=== PATIENT | female | born 1975 | race Caucasian/White ===

== ENCOUNTER 2023-12-28 22:04 | Emergency (ER) | payer MEDICAID, SELFPAY ==
--- NOTE | ~2023-12-28 | CT_ITS ---
EXAMINATION: CT HEAD WITHOUT CONTRAST CLINICAL INFORMATION: Fall. Altered mental status. COMPARISON: None available. TECHNIQUE: Contiguous axial imaging was performed from the skull base to vertex without intravenous administration of contrast. This CT examination was performed using dose optimization techniques as appropriate, variously including the following: *Automated exposure control *Adjustment of mA and/or kV according to patient size (this includes techniques or standardized protocols for targeted exams where dose is matched to indication/reason for exam; i.e. extremities or head) *Use of iterative reconstruction technique DLP: 650 mGy-cm FINDINGS: The lateral, third and fourth ventricles are normally outlined. The cortical sulci and basal cisterns are normally outlined as well. There is no acute territorial defect, hemorrhage or midline shift. The extra-axial spaces are unremarkable. Calvarium/scalp: Intact. Maxillofacial sinuses and mastoids: Clear as visualized. CT/CT head/brain wo IV con IMPRESSION: No acute intracranial pathology.
[2023-12-28 22:28] VITALS: BP 100/58; PULSE 89; PULSE 94; RESP 14; TEMP 37.1; O2SAT 95; O2SAT 96; BMI 31.8
[2023-12-28 23:15] LABS: MANUAL DIFF FLAG NO
[2023-12-28 23:16] LABS: Basophils Absolute Auto 0.1 X10*3/uL (0.0-0.2); Basophils Percent Auto 0.8 % (0-2); Eosinophils Absolute Auto 0.2 X10*3/uL (0.0-0.4); Eosinophils Percent Auto 3.6 % (0-4); Hemoglobin 12.4 g/dl (12.0-16.0); Imm Gran Abs Auto 0.01 X10*3/uL (0.00-0.03); Imm Gran Pct Auto 0.2 % (0.0-0.4); Lymphocytes Absolute Auto 2.3 X10*3/uL (1.2-4.9); Lymphocytes Percent Auto 35.4 % (20-40); Mean Corpuscular HGB Conc 34.4 g/dl (31.0-35.0); Mean Corpuscular Hemoglobin 30.5 pg (27.0-33.0); Mean Corpuscular Volume 88.5 fL (80.0-98.0); Mean Platelet Volume 9.4 fL (9.4-12.3); Monocytes Absolute Auto 0.5 X10*3/uL (0.1-1.2); Neutrophils Absolute Auto 3.4 x10*3/uL (2.0-8.3); Platelet Count 193 X10*3/uL (160-400); Red Blood Count 4.07 X10*6/uL (4.20-5.50); Red Cell Distribution Width 12.9 % (11.0-16.0); White Blood Count 6.6 X10*3/uL (4.8-10.8)
--- NOTE | 2023-12-28 23:25 | PC.NURSE ---
Rcvd call from [facility] for update. Notified that we are pending MD evaluation.
[2023-12-28 23:31] LABS: Alanine Aminotransferase 13 U/L (0-31); Albumin Level 3.6 g/dL (3.5-5.0); Alkaline Phosphatase 122 U/L (39-117); Anion Gap 16 (12-20); Aspartate Amino Transferase 16 U/L (5-31); Bilirubin Total 0.2 mg/dL (0.0-1.0); Blood Urea Nitrogen 18 mg/dL (9-16); Carbon Dioxide 24 mmol/L (22-29); Chloride 106 mmol/L (96-108); Estimated Glomerular Filt Rate > 60; Ethanol < 10 mg/dL; Glucose Random 110 mg/dL (60-115); Potassium 3.7 mmol/L (3.3-5.1); Sodium 142 mmol/L (135-145); Total Protein 6.8 g/dL (6.5-8.0)
[2023-12-29] VITALS: BP 105/60; PULSE 78; RESP 14; TEMP 36.8; O2SAT 92
--- NOTE | 2023-12-29 00:16 | ED_ITS ---
HPI - Altered Mental Status General Chief Complaint: Altered Mental Status Stated Complaint: from sober house, altered, denies drug use Time Seen by Provider: 12/28/23 23:35 Source: EMS Mode of arrival: EMS Limitations: altered mental status History of Present Illness ED Provider: Dr. Emilia Odom HPI narrative: Patient comes to the emergency room via ambulance from sober house. Seems that today was the 1st day that patient was allowed to leave the sober house. When patient returned to the residents, patient was not in, falling asleep, it is likely that patient used drugs. Patient has history of polysubstance abuse. On arrival to the emergency room, patient falling asleep, wakes up to name a falls back asleep, nodding off. Patient has no signs of trauma. Related Data Allergies Allergy/AdvReac Type Severity Reaction Status Date / Time amoxicillin [From Augmentin] Allergy Unknown Verified 12/28/23 22:32 clavulanic acid Allergy Unknown Verified 12/28/23 22:32 [From Augmentin] Review of Systems 2 Review of Systems: Yes Unobtainable due to mental status [facility] Past Medical History Medical History (Updated 12/29/23 @ 00:19 by Emilia Odom MD) Polysubstance abuse Social History Social History Smoked in Last 30 Days: Yes Use of substances other than those prescribed or required for medical reasons: Yes Substance Use Type: Marijuana Do you have a plan to hurt others: No Plan Patient : No Physical Exam ED Vital Signs: Vital Signs - 24 hr 12/28/23 22:28 12/29/23 00:00 Temperature 98.7 F 98.2 F Pulse Rate 89 78 Respiratory Rate 14 14 Blood Pressure 100/58 L 105/60 Pulse Oximetry 96 92 Oxygen Delivery Method Nasal Cannula Room Air BMI result Body Mass Index 31.8 Const Other: Appearance: Somnolent, wakes up to name falls back asleep Eyes: Pinpoint pupils, Pupils equal, round and reactive to light. ENT: Pharynx normal. Neck: Normal inspection. Neck supple. No lymph nodes noted. No crepitus CVS: Normal heart rate and rhythm. Pulses normal. Normal S1 and S2 Respiratory: No respiratory distress. Breath sounds normal. No Wheezing. No rales Abdomen: Soft and nontender. No rigidity. No distention. Skin: Skin warm and dry. Normal skin color. Normal skin turgor. Extremities: No lower extremity edema. No Lacerations. No Rash Neuro: Somnolent, unable to participating cranial nerve assessment Psych: To somnolent Course Course Course Narrative: -labs and CT scan pending -patient too somnolent to give any significant information -patient's vitals stable, no need for Narcan at this time Medical Decision Making Medical Decision Making [facility] Narrative: -my interpretation of labs: Normal hematology and chemistry, negative ETOH levels -CT scan my interpretation: No intracranial bleed -urine toxicology pending -plan: Metabolize to freedom, wait for patient to be awake, assess for SI -sign out given to Dr. Arroyo Differential Diagnosis Differential Diagnoses: The differential diagnosis associated with the presentation includes (Polysubstance abuse) Admission/Observation Consideration of admission/observation: Escalation of care including admission/observation considered (Patient too somnolent to answer any questions, patient is under physician observation) Lab Data [facility] Lab Attestation statement: I reviewed the patient's lab results. 12/28/23 23:10 12/28/23 23:10 Labs: Lab Results 12/28/23 Range/Units 23:10 WBC 6.6 (4.8-10.8) X10*3/uL RBC 4.07 L (4.20-5.50) X10*6/uL Hgb 12.4 (12.0-16.0) g/dl Hct 36.0 L (37.0-47.0) % MCV 88.5 (80.0-98.0) fL MCH 30.5 (27.0-33.0) pg MCHC 34.4 (31.0-35.0) g/dl RDW 12.9 (11.0-16.0) % Plt Count 193 (160-400) X10*3/uL MPV 9.4 (9.4-12.3) fL Immature Gran % (Auto) 0.2 (0.0-0.4) % Neut % (Auto) 52.0 (45-73) % Lymph % (Auto) 35.4 (20-40) % Glynn % (Auto) 8.0 (2-11) % Eos % (Auto) 3.6 (0-4) % Baso % (Auto) 0.8 (0-2) % Lymph # (Auto) 2.3 (1.2-4.9) X10*3/uL Glynn # (Auto) 0.5 (0.1-1.2) X10*3/uL Eos # (Auto) 0.2 (0.0-0.4) X10*3/uL Baso # (Auto) 0.1 (0.0-0.2) X10*3/uL Abs Immat Gran (auto) 0.01 (0.00-0.03) X10*3/uL Absolute Neuts (auto) 3.4 (2.0-8.3) x10*3/uL Absolute Nucleated RBC 0.000 (0.0-0.012) X10*3/uL Nucleated RBC % (auto) 0.0 (0.0-0.2) /100WBC Sodium 142 (135-145) mmol/L Potassium 3.7 (3.3-5.1) mmol/L Chloride 106 (96-108) mmol/L Carbon Dioxide 24 (22-29) mmol/L Anion Gap 16 (12-20) BUN 18 H (9-16) mg/dL Creatinine 0.91 (0.5-1.4) mg/dL Estim Creat Clear Calc 88.0 Estimated GFR > 60 Random Glucose 110 (60-115) mg/dL Calcium 9.0 (8.4-10.2) mg/dL Total Bilirubin 0.2 (0.0-1.0) mg/dL AST 16 (5-31) U/L ALT 13 (0-31) U/L Alkaline Phosphatase 122 H (39-117) U/L Total Protein 6.8 (6.5-8.0) g/dL Albumin 3.6 (3.5-5.0) g/dL Ethyl Alcohol < 10 mg/dL Independent Interpretation I performed an independent interpretation of an: CT Scan Radiology Impression Discussion of test interpretation with radiology: I have reviewed the radiologist's reading. Radiologist Impression: The lateral, third and fourth ventricles are normally outlined. The cortical sulci and basal cisterns are normally outlined as well. There is no acute territorial defect, hemorrhage or midline shift. The extra-axial spaces are unremarkable. Calvarium/scalp: Intact. Maxillofacial sinuses and mastoids: Clear as visualized. CT/CT head/brain wo IV con IMPRESSION: No acute intracranial pathology. Critical Care Time Critical Care Time Critical Care Time: Yes Total Critical Care Time: 35 Attestation: I have personally provided critical care time. Time includes review of lab data, radiology results, discussion with consultants, and monitoring for potential decompensation. Intervention performed as documented. Discharge Plan Discharge Clinical Impression: Polysubstance abuse Patient Disposition: Still a Patient
--- NOTE | 2023-12-29 03:02 | PC.NURSE ---
pt sleeping, respirations even and unlabored.
[2023-12-29 04:46] VITALS: BP 107/64; PULSE 76; RESP 14; TEMP 36.4; O2SAT 94
[2023-12-29 07:27] LABS: Appearance Urine Clear; Color Urine Yellow; Glucose Urine UA Negative (Negative); Leukocyte Esterase Urine Trace (Negative); Nitrite Urine Negative (Negative); UMIC TRIGGER UACC YES; Urine Blood Negative (Negative); Urine Ketones Negative (Negative); Urine Protein Negative (Neg-Trace)
[2023-12-29 07:32] LABS: Amphetamine Screen Urine Not Detected (Not Detect); Barbiturates, Urine Not Detected (Not Detect); Benzodiazepines Screen Urine Not Detected (Not Detect); Buprenorphine Scr Not Detected (Not Detect); Cannabinoid Screen Urine Not Detected (Not Detect); Cocaine Screen Urine Not Detected (Not Detect); Fentanyl, urine Not Detected (Not Detect); Methadone Screen, Urine Positive (Not Detect); Opiate Screen Urine Not Detected (Not Detect); Oxycodone Screen Urine Not Detected (Not Detect); Phencyclidine Screen Urine Not Detected (Not Detect)
[2023-12-29 07:42] LABS: Bacteria Urine Trace (None Seen); Hyaline Casts Urine 0-2 /LPF (0-2); RBC Urine 0-2 /HPF (0-2); Squamous Epithelial Cell Urine 0-2 /HPF (0-2); WBC Urine 0-5 /HPF (0-5)
[2023-12-29 08:55] VITALS: BP 126/77; PULSE 93; RESP 16; O2SAT 96
--- NOTE | 2023-12-29 08:56 | PC.NURSE ---
Spoke with Evelia from [facility] (case briefer) with permission of pt, facility to accept pt back. Pt okay to walk home home per Evelia and is to return straight back. VSS. Pt steady and a/o
[2023-12-29 08:57] VITALS: BP 126/77; PULSE 93; RESP 16; TEMP -17.7; TEMP 0; O2SAT 96
== END 2023-12-29 10:13 | disposition home or self-care (01) ==
PROVIDERS: Emergency Provider Emergency Medicine
DX: F19.10 Other psychoactive substance abuse, uncomplicated (principal)
CPT/HCPCS: 36415; 70450; 80053; 80307; 81001; 85025; 99284

== ENCOUNTER 2024-02-06 09:47 | Outpatient (REF) | payer MEDICAID, SELFPAY ==
[2024-02-06 11:22] LABS: MANUAL DIFF FLAG NO
[2024-02-06 11:35] LABS: Basophils Absolute Auto 0.1 X10*3/uL (0.0-0.2); Basophils Percent Auto 1.2 % (0-2); Eosinophils Absolute Auto 0.2 X10*3/uL (0.0-0.4); Eosinophils Percent Auto 4.2 % (0-4); Hematocrit 42.1 % (37.0-47.0); Hemoglobin 13.9 g/dl (12.0-16.0); Imm Gran Abs Auto 0.02 X10*3/uL (0.00-0.03); Imm Gran Pct Auto 0.4 % (0.0-0.4); Lymphocytes Absolute Auto 1.9 X10*3/uL (1.2-4.9); Lymphocytes Percent Auto 32.6 % (20-40); Mean Corpuscular Hemoglobin 29.9 pg (27.0-33.0); Mean Corpuscular Volume 90.5 fL (80.0-98.0); Mean Platelet Volume 10.6 fL (9.4-12.3); Monocytes Absolute Auto 0.4 X10*3/uL (0.1-1.2); Monocytes Percent Auto 6.9 % (2-11); Neutrophils Absolute Auto 3.1 x10*3/uL (2.0-8.3); Neutrophils Percent Auto 54.7 % (45-73); Platelet Count 225 X10*3/uL (160-400); Red Blood Count 4.65 X10*6/uL (4.20-5.50); Red Cell Distribution Width 12.7 % (11.0-16.0); White Blood Count 5.7 X10*3/uL (4.8-10.8)
[2024-02-06 11:54] LABS: Alanine Aminotransferase 15 U/L (0-31); Albumin Level 3.8 g/dL (3.5-5.0); Alkaline Phosphatase 123 U/L (39-117); Anion Gap 13 (12-20); Aspartate Amino Transferase 18 U/L (5-31); Bilirubin Total 0.2 mg/dL (0.0-1.0); Blood Urea Nitrogen 17 mg/dL (9-16); Calcium 8.9 mg/dL (8.4-10.2); Carbon Dioxide 24 mmol/L (22-29); Chloride 108 mmol/L (96-108); Estimated Glomerular Filt Rate > 60; Glucose Random 96 mg/dL (60-115); Potassium 4.2 mmol/L (3.3-5.1); Sodium 141 mmol/L (135-145); Total Protein 7.2 g/dL (6.5-8.0)
[2024-02-07 08:36] LABS: Hepatitis A Antibody IgG REACTIVE (Nonreactive); ~Hepatitis A Antibody IgG 5.63 S/CO (0.00-0.99)
[2024-02-07 09:33] LABS: HBS Num1 0.38 mIU/mL (0-7.99); HBc Num1 0.24 S/CO (0.00-0.79); HBsAGNum1 0.73 S/CO (0.00-0.99); Hepatitis B Core Antibody Nonreactive (Nonreactive); Hepatitis B Surface Antigen Negative (Negative); ~HepC Num1 14.45 S/CO (0.00-0.79); ~Hepatitis B Surface Antibody NONREACTIVE (Nonreactive); ~Hepatitis C Antibody Reactive (Nonreactive)
[2024-02-11 13:34] LABS: HCV Log PCR <1.18 NOT DETECTED Log IU/mL (NOT DETECTED); HepC Viral Load <15 NOT DETECTED IU/mL (NOT DETECTED)
== END 2024-02-06 09:48 | disposition home or self-care (01) ==
LOC: HO.HHCL 09:47
PROVIDERS: Visit Provider Family Medicine
DX: R51.9 Headache, unspecified (principal); B18.2 Chronic viral hepatitis C
CPT/HCPCS: 36415; 80053; 85025; 86704; 86706; 86708; 86803; 87340; 87522

== ENCOUNTER 2024-02-13 13:47 | Outpatient (REF) | payer MEDICAID, SELFPAY ==
[2024-02-13 16:37] LABS: TSH reflex Free T4 0.32 uIU/mL (0.32-4.0)
== END 2024-02-13 13:48 | disposition home or self-care (01) ==
LOC: HO.HHCL 13:47
PROVIDERS: Visit Provider Nurse Practitioner
DX: R53.83 Other fatigue (principal)
CPT/HCPCS: 36415; 84443

== ENCOUNTER 2025-07-03 15:29 | Emergency (ER) | payer OTHER, SELFPAY ==
--- OUTSIDE RECORDS SUMMARY | 2024-08-14 08:00 | XMS_ITS ---
Author Organization [facility] Address [address] [place] [address] Care Team Providers Care Golf Course Ranger Name Role Phone NO, PCP Primary Care Provider [facility], Nursing Unavailable [phone] REASON FOR VISIT Office: Intake Encounters Encounter Location Date Provider Diagnosis [address] [address] 08/14/2024 Nursing [facility] Encounter for screening for COVID-19 Z11.52 Assessments [...] Notes * Nacho REDOB:1975 (49 yo F)Acc No.[id number]:08/14/2024 Progress Notes Patient: Evy MODI Provider: Mat CEDILLO :1975 A ge:49 Y S ex:Female Date:08/14/2024 Address:[address] [place], [place] [phone] Pcp:PCP NO Subjective: * Chief Complaints: * [...] Codes: * Electronic signature of Chicho shaw [facility] on 07/03/2025 at 06:18 PM EST Sign off status: Pending * Provider: Mat CEDILLO Date: 0 08/14/2024 Generated for Serge jay/Cj/Delfin on: 09/03/2024 06:18 PM EST
--- OUTSIDE RECORDS SUMMARY | 2024-09-18 08:30 | XMS_ITS ---
Author Organization [facility] Address [address] [place] [phone] Care Team Providers Care Art Editor Name Role Phone NO, PCP Primary Care Provider [facility], Nursing Unavailable [phone] REASON FOR VISIT Office: Intake Encounters Encounter Location Date Provider Diagnosis [address] [address] 09/18/2024 Nursing [facility] Plan Of Treatment No Information Progress Notes * JOSEDonnaBartolomeOB:1975 (49 yo F)Acc No.[id number]:09/18/2024 Progress Notes Patient: Evy MODI Provider: Mat christina [facility] :1975 A ge:49 Y S ex:Female Date:09/18/2024 Address:[address] [place], [place] [phone] Pcp:PCP NO Subjective: * Chief Complaints: * 1 . Office: Intake. * Medical History: Objective: * Vitals: Assessment: Plan: * Treatment: * Images: Billing Information: * Visit Code: * Procedure Codes: * Electronic signature of Chicho shaw [facility] on 07/03/2025 at 06:17 PM EST Sign off status: Pending * Provider: Mat christina [facility] Date: 0 09/18/2024 Generated for Serge jay/Cj/Delfin on: 09/03/2024 06:17 PM EST
--- OUTSIDE RECORDS SUMMARY | 2025-03-27 16:00 | XMS_ITS ---
Author Organization [facility] Address [address] [place] [address] Care Team Providers Care Locomotive Boilermaker Name Role Phone NO, PCP Primary Care Provider [phone] [facility], Nursing Unavailable [phone] Migration, Provider Unavailable Unavailable REASON FOR VISIT [facility] Conversion Encounter Medications Medication SIG (Take, [...] Active Encounters Encounter Location Date Provider Diagnosis [address] [address] 03/27/2025 Provider Migration Plan Of Treatment Medication [...] Notes * Nacho REDOB:1975 (49 yo F)Acc No.[id number]:03/27/2025 Patient: Evy MODI Provider: :1975 A ge:49 Y S ex:Female Date:03/27/2025 Address:[address] [place], [place] [phone] Pcp:PCP NO Subjective: * Chief Complaints: * 1 . [facility] Conversion Encounter. * Medical History: Objective: * Vitals: Assessment: Plan: * Treatment: * Images: Billing Information: * Visit Code: * Procedure Codes: * Electronic signature of Prov ider [facility] on 07/03/2025 at 06:17 PM EST Sign off status: Pending * Provider: Date: 0 03/27/2025 Generated for Serge jay/Cj/Yeniitting on: 1 09/03/2024 06:17 PM EST
[2025-07-03 16:33] VITALS: BP 142/71; PULSE 102; RESP 16; TEMP 36.7; O2SAT 93; BMI 38.4
--- NOTE | 2025-07-03 16:33 | ED_ITS ---
HPI - Back Pain/Injury General Chief Complaint: Back Pain/Injury Stated Complaint: lower back pain Time Seen by Provider: 07/03/25 20:04 Source: patient Mode of arrival: ambulatory Limitations: no limitations History of Present Illness ED Provider: Jacinto SNELL HPI Narrative: The patient is a 49-year-old female who presents to the Emergency Department with a one-month history of low back pain that has increased in severity over the past week. She denies associated fall, injury, dysuria, hematuria, diarrhea, fever, bowel/bladder incontinence, saddle paresthesias, or lower extremity weakness. Related Data Previous Rx's ?Medication ?Instructions ?Recorded sulfamethoxazole 800 1 tab PO BID #28 tabs mg-trimethoprim 160 mg tablet (Bactrim DS) Allergies Allergy/AdvReac Type Severity Reaction Status Date / Time amoxicillin (From Augmentin) Allergy Unknown Verified 07/03/25 16:36 clavulanic acid (From Allergy Unknown Verified 07/03/25 16:36 Augmentin) Review of Systems 2 Review of Systems: Yes all other systems are reviewed and are negative PMFSH Past Medical History Medical History (Updated 07/03/25 @ 20:42 by Jacinto Sandhu PA-C) Polysubstance abuse Social History Social History Smoked in Last 30 Days: Yes Use of substances other than those prescribed or required for medical reasons: No Substance Use Type: Marijuana Advance Directives: No Advance Directives Information Provided: No Do you have a plan to hurt others: No Plan Patient : No Physical Exam 2 Vital Signs: Vital Signs: Last Vital Signs Temp 98.0 F 07/03/25 18:06 Pulse 98 07/03/25 18:06 Resp 16 07/03/25 18:06 BP 133/81 07/03/25 18:06 Pulse Ox 95 07/03/25 18:06 O2 Del Method Room Air 07/03/25 18:06 BMI result Body Mass Index 38.4 CONSTITUTIONAL: The patient appears non-toxic, well nourished and in no acute distress, sleeping comfortably upon initiation of interview and exam, wakes easily. Vital signs as documented. HEAD: Atraumatic, normocephalic. EYES: EOMs grossly intact, pupils equal, conjunctiva clear, no exudate. ENT: Nares patent, no discharge. Airway patent, no audible stridor, visible mucosa is pink and moist without noted lesions. NECK: Trachea is midline, no obvious masses or gross abnormalities. CHEST: Symmetric movement, normal appearance. LUNGS: LS present and CTAB, no w/r/r. Non-labored work of breathing. CARDIAC: Regular Rhythm, S1/S2 appreciated, no murmurs, rubs or gallops. ABDOMEN: Abdomen soft and non-tender x4 quadrants, no palpable masses or organomegaly. Positive CVAT bilaterally. : Deferred. EXTREMITIES: Normal tone, moves all extremities spontaneously without reported pain. No obvious acute injury or deformity noted. NEURO: Alert and oriented x3, CN II-XII appear grossly intact. Cerebellar Functioning grossly intact. No obvious sensory or motor deficits. Speech clear and appropriate. PSYCH: normal affect, appropriate eye contact, fluid speech, with appropriate response to questioning. No reported suicidality or homicidality. SKIN: Warm, dry, color appropriate, normal turgor. No rashes noted. Course Course Course Narrative: Cassidy Flores [employer]YING MACHINE [employer] 07/03 1640 49 yo female with history of schizophrenia, depression here with lower back pain x 1 month. Radiation to left hip and down left leg. No numbness in the groin. No bowel or bladder incontinence. No numbness, weakness, tingling of the lower extremities. No fevers, chills. Taking APAP at home with no relief. h/i IVDA. Last used 3 months ago. Ex partner just released from the hospital after being admitted for an epidural abscess. They share needles. She will need labs, UA VSS Medical Decision Making Medical Decision Making MDM Narrative: 8:33 PM 07/03/2025 (Watson SNELL): The patient is a 49-year-old female who presents to the Emergency Department with a one-month history of low back pain that has increased in severity over the past week. She denies associated fall, injury, dysuria, hematuria, diarrhea, fever, bowel/bladder incontinence, saddle paresthesias, or lower extremity weakness. On exam the patient is nontoxic appearing, positive CVAT bilaterally, no abdominal tenderness. The patient's laboratory evaluation shows no leukocytosis, anemia, electrolyte abnormality, or ROSARIO there is mild elevation of ESR and CRP. The patient's urinalysis does show evidence of a UTI with positive nitrites, leukocyte esterase, WBCs, and 4+ bacteria. At this time the patient's vital signs are stable, no hypotension, tachycardia, fever, or tachypnea, the patient will be treated with and discharged with continued Bactrim for suspected pyelonephritis. Admission/Observation Consideration of admission/observation: Escalation of care including admission/observation considered Lab Data MDM Lab Attestation statement: I reviewed the patient's lab results. 07/03/25 17:14 07/03/25 17:14 Labs: Lab Results 07/03/25 Range/Units 17:14 WBC 6.6 (4.8-10.8) X10*3/uL RBC 4.57 (4.20-5.50) X10*6/uL Hgb 13.6 (12.0-16.0) g/dl Hct 41.7 (37.0-47.0) % MCV 91.2 (80.0-98.0) fL MCH 29.8 (27.0-33.0) pg MCHC 32.6 (31.0-35.0) g/dl RDW 12.8 (11.0-16.0) % Plt Count 191 (160-400) X10*3/uL MPV 10.1 (9.4-12.3) fL Immature Gran % (Auto) 0.3 (0.0-0.4) % Neut % (Auto) 58.0 (45-73) % Lymph % (Auto) 30.2 (20-40) % [facility] % (Auto) 6.8 (2-11) % Eos % (Auto) 3.9 (0-4) % Baso % (Auto) 0.8 (0-2) % Lymph # (Auto) 2.0 (1.2-4.9) X10*3/uL [facility] # (Auto) 0.5 (0.1-1.2) X10*3/uL Eos # (Auto) 0.3 (0.0-0.4) X10*3/uL Baso # (Auto) 0.1 (0.0-0.2) X10*3/uL Abs Immat Gran (auto) 0.02 (0.00-0.03) X10*3/uL Absolute Neuts (auto) 3.8 (2.0-8.3) x10*3/uL Absolute Nucleated RBC 0.000 (0.0-0.012) X10*3/uL Nucleated RBC % (auto) 0.0 (0.0-0.2) /100WBC ESR 21 H (1-20) MM/HR Sodium 143 (135-145) mmol/L Potassium 3.9 (3.3-5.1) mmol/L Chloride 106 (96-108) mmol/L Carbon Dioxide 26 (22-29) mmol/L Anion Gap 15 (12-20) BUN 12 (9-16) mg/dL Creatinine 0.80 (0.5-1.4) mg/dL Estim Creat Clear Calc 105.7 Estimated GFR > 60 Random Glucose 134 H (60-115) mg/dL Calcium 9.2 (8.4-10.2) mg/dL Total Bilirubin 0.2 (0.0-1.0) mg/dL Direct Bilirubin < 0.2 (0.0-0.5) mg/dL AST 27 (5-31) U/L ALT 26 (0-31) U/L Alkaline Phosphatase 126 H (39-117) U/L C-Reactive Protein 0.83 H (< or = 0.50) mg/dL Total Protein 7.0 (6.5-8.0) g/dL Albumin 3.9 (3.5-5.0) g/dL Urine Color Yellow Urine Appearance Clear Urine pH 5.0 (5.0-9.0) Ur Specific Ida 1.010 (1.005-1.025) Urine Protein Negative (Neg-Trace) mg/dL Urine Glucose (UA) Negative (Negative) mg/dL Urine Ketones Negative (Negative) mg/dL Urine Blood Negative (Negative) Urine Nitrite Positive H (Negative) Ur Leukocyte Esterase Moderate (2+) H (Negative) Urine RBC 0-2 (0-2) /HPF Urine WBC 21-50 H (0-5) /HPF Ur Squamous Epith Cells 3-5 (0-2) /HPF Urine Bacteria 4+ (None Seen) Hyaline Casts 0-2 (0-2) /LPF Urine Test NEGATIVE (NEGATIVE) External Record Review External record reviewed: Outpatient record and Prior outpatient labs Prescription Management I considered prescription management with: Pain Medication and Antibiotic Discharge Plan Discharge Clinical Impression: Urinary tract infection Qualifiers: Urinary tract infection type: acute pyelonephritis Qualified Code(s): N10 - Acute pyelonephritis Patient Disposition: Home, Self-Care Instructions: Urinary Tract Infection in Women (ED), Kidney Infection (ED) Additional Instructions: Thank you for choosing [facility]'s Emergency Department for your care today. Thankfully your laboratory evaluation today shows no evidence of a systemic infection, anemia, electrolyte abnormality, or kidney dysfunction. Your urinalysis does show evidence of a urinary tract infection. Based on your infected urine and tenderness on exam, we are treating you for a suspected urinary tract infection with the infection in your kidneys. Thankfully given your reassuring vital signs, exam, and laboratory workup at this time there is no indication for admission to the hospital or continued ED observation, and it is safe to discharge you home with oral antibiotics. Please take Bactrim as prescribed until it is finished. You should take alternating (staggered) doses of ibuprofen 600mg and Tylenol 1000mg every 4 hours as needed for any additional pain. Please stay well hydrated and get plenty of rest. Please follow up with your primary care physician for re-evaluation, additional management of your symptoms, and continued preventative care. If you do not have a primary care physician, please call the [facility] at [phone] to establish a new primary care physician. While waiting to establish your new primary care physician, you can call our Walk[facility]in [facility] at [phone] for non-emergency needs. Please return to the emergency department if you develop a severe or sudden change in your symptoms, a fever over 100.4 that does not improve with Tylenol or Ibuprofen, recurrent vomiting, or any other new or worsening symptoms or concerns. Prescriptions: New sulfamethoxazole-trimethoprim [Bactrim DS] 800-160 mg tablet 1 tab PO BID Qty: 28 0RF Print Language: Hungarian
[2025-07-03 17:23] LABS: MANUAL DIFF FLAG NO
[2025-07-03 17:25] LABS: Appearance Urine Clear; Glucose Urine UA Negative (Negative); Hematocrit 41.7 % (37.0-47.0); Hemoglobin 13.6 g/dl (12.0-16.0); Imm Gran Abs Auto 0.02 X10*3/uL (0.00-0.03); Imm Gran Pct Auto 0.3 % (0.0-0.4); Lymphocytes Absolute Auto 2.0 X10*3/uL (1.2-4.9); Mean Corpuscular HGB Conc 32.6 g/dl (31.0-35.0); Mean Corpuscular Hemoglobin 29.8 pg (27.0-33.0); Mean Corpuscular Volume 91.2 fL (80.0-98.0); NRBC Abs Auto 0.000 X10*3/uL (0.0-0.012); NRBC Pct Auto 0.0 /100WBC (0.0-0.2); PH 5.0 (5.0-9.0); Platelet Count 191 X10*3/uL (160-400); Red Blood Count 4.57 X10*6/uL (4.20-5.50); Specific Gravity - Urine 1.010 (1.005-1.025); UMIC TRIGGER UACC YES; White Blood Count 6.6 X10*3/uL (4.8-10.8)
[2025-07-03 17:26] LABS: UPreg QC Valid YES
[2025-07-03 17:30] LABS: UACC Culture Trigger YES
[2025-07-03 17:50] LABS: Alanine Aminotransferase 26 U/L (0-31); Albumin Level 3.9 g/dL (3.5-5.0); Alkaline Phosphatase 126 U/L (39-117); Anion Gap 15 (12-20); Aspartate Amino Transferase 27 U/L (5-31); Blood Urea Nitrogen 12 mg/dL (9-16); Calcium 9.2 mg/dL (8.4-10.2); Carbon Dioxide 26 mmol/L (22-29); Chloride 106 mmol/L (96-108); Creatinine Clr Calc Pharmacy 105.7; Estimated Glomerular Filt Rate > 60; Potassium 3.9 mmol/L (3.3-5.1); Sodium 143 mmol/L (135-145); Total Protein 7.0 g/dL (6.5-8.0)
[2025-07-03 18:06] VITALS: BP 133/81; PULSE 98; RESP 16; TEMP 36.7; O2SAT 95
--- OUTSIDE RECORDS SUMMARY | 2025-07-03 18:18 | XMS_ITS | Patient Health Record ---
Author Organization [facility] Address [address] [place] [id number] Care Team Providers Care Doctor Of Veterinary Medicine Name Role Phone NO, PCP Primary Care Provider [phone] [facility], Nursing Unavailable [phone] Migration, Provider Unavailable Unavailable Reason For Referral No Information Medications Medication SIG (Take, Route, Fr equency, [...] a day for 30 day(s) 08/27/2024 Active Problems Problem Type SNOMED Code ICD Code Onset Dates Problem Status W/U Status Risk Notes Problem Opioid dependence (30682587) Opioid dependence, uncomplicated (F11.20) Active confirmed Problem Severe recurrent major depression without psychotic features (79994765) Major depressive disorder, recurrent severe without psychotic features (F33.2) Active confirmed Problem Anxiety disorder (793053270) Anxiety disorder, unspecified (F41.9) Active confirmed Problem Post-traumatic stress disorder (76519222) Post-traumatic stress disorder, unspecified (F43.10) Active confirmed Encounters Encounter Location Date Provider Diagnosis [address] [phone] 03/27/2025 Provider Migration [address] [phone] 08/27/2024 Nursing [facility] [address] [place], [place] [phone] 09/03/2024 Nursing [facility] Assessments Encounter Date Diagnosis (ICD Code) Assessment Notes Treatment Notes Treatment Clinical Notes Section Notes 08/14/2024 Other Plan Of Treatment No Information Insurance Providers Payer Name Payer Address Payer Phone Subscriber Number Group Number Insured Name Patient Relationship to Insured Coverage Start Date Coverage End Date [place] C3 [address] [place], [place] [id number] Evy Garcia Self - patient is the insured 4
--- OUTSIDE RECORDS SUMMARY | 2025-07-03 18:18 | XMS_ITS | Clinical Summary ---
Author Organization [employer] Address [address] [facility] [address] [place] [address] Care Team Providers Care Microbiology Laboratory Manager Name Role Phone Chiquita Anders NP Primary Care Provider [phone] Allergies Active Allergy Reactions Criticality Noted Date Comments Amoxicillin-Pot Clavulanate Hives 01/22/20 24 Medications * This document contains information received from the source organization and may not represent a complete record from that organization. Ventolin HFA 108 (90 Base) MCG/ACT inhaler INHALE 2 PUFFS INTO THE LUNGS USING INHALER EVERY 4 HOURS NEEDED 4 Active cloNIDine (Catapres) 0.1 MG tablet Take 0.1 mg by mouth if needed in the morning and at bedtime. 4 Active hydrOXYzine HCl (Atarax) 25 MG tablet Take 25 mg by mouth if needed in the morning and at bedtime. 3 Active traZODone (Desyrel) 50 MG tablet TAKE 1 - 2 TABLET BY MOUTH EVERY NIGHT AT BEDTIME NEEDED FOR INSOMNIA 4 Active topiramate 50 MG tablet PLEASE SEE ATTACHED FOR DETAILED DIRECTIONS 4 Active cyclobenzaprine (Flexeril) 10 MG tabletIndication s:Low back pain without sciatica, unspecified back pain laterality, unspecified chronicity Take 1 tablet (10 mg) by mouth if needed in the morning, at noon, and at bedtime for muscle spasms for up to [address]. [address] or use heavy machinery while on this medication 20 tablet 4 Active Acetaminophen Extra Strength 500 MG tablet TAKE 1 TABLET BY MOUTH EVERY 4-6 HOURS NEEDED FOR FEVER FOR PAIN 4 Active hydrocortisone 1 % cream PLEASE SEE ATTACHED FOR DETAILED DIRECTIONS 4 Active hydrOXYzine pamoate (Vistaril) 25 MG capsule TAKE 1 OR 2 CAPSULES BY MOUTH 3 TIMES A DAY NEEDED FOR ANXIETY 4 Active naloxone (Narcan) 4 mg/0.1 mL nasal spray PLEASE SEE ATTACHED FOR DETAILED DIRECTIONS 4 Active sulfamethoxazole -trimethoprim (Bactrim DS) 800-160 MG tablet Take 1 tablet by mouth 2 times daily. 4 Active famotidine (Pepcid) 20 MG tabletIndication s:Heart burn Take 1 tablet (20 mg) by mouth at bedtime. 30 tablet 11 4 Active Active Problems Problem Noted Date Diagnosed Date Heart burn 02/13/2024 Assessment & Plan (02/13/2024 2:08 PM EDT): -weight loss advised -avoid trigger foods such as caffeine, chocolate, spicy foods, food with high fat content, carbonated beverages, highly acidic food and peppermint -avoid late night eating -avoid tight-fitting garments to prevent increasing intragastric pressure -remain upright for at least 1-2 hour following meals -trial famotidine 20 mg nightly -follow-up 6 weeks Neck pain 02/13/2024 Assessment & Plan (02/13/2024 2:16 PM EDT): -PE suggestive of muscle tension -suspected cause of her headache; may also be maigraine -advised to complete head CT ordered on 02/05 -use muscle relaxer and gently massage diclofenac gel previously prescribed to the area -apply ice/heat as preferred 20 mins on and 20 mins off -complete gentle stretching exercises taught in clinic two times daily -referral for PT placed -consider treatment for migraine if no success with aforementioned interventions -follow-up 6 weeks or sooner as needed Fatigue 02/13/2024 Assessment & Plan (02/13/2024 2:13 PM EDT): -symptoms may be due to methadone taper, lack of physical activity, or depression -labs completed 02/06/2024 with normal CBC -ordered TSH to evaluate thyroid as possible cause -follow-up 6 weeks Heroin addiction (CMS/HCC) 01/22/2024 Anxiety 01/22/2024 Encounters Date Type Department Care Team Description 05/04/2025 Population Health Risk Score [facility] ([facility]) Department [address] [phone] Provider, Population Health Generic from Last 3 Months Social History Tobacco Use Types Packs/Day Years Used Date Smoking Tobacco: Every Day Cigarettes Passive Smoke Exposure: Past Smokeless Tobacco: Never Tobacco Cessation:Ready to Q uit: Not Asked; Counseling Given: Not Answered Comments Unknown Sex and Gender Information Value Date Recorded Sex Assigned at Female 01/22/2024 10:26 AM EDT Legal Sex Female 11:10 AM EDT Gender Identity Female 12/20/2023 12:32 PM EDT Sexual Orientation Choose not to disclose 2023 12:33 PM EDT Last Filed Vital Signs Vital Sign Reading Time Taken Comments Blood Pressure 122/71 02/13/2024 1:15 PM EDT Pulse 84 02/13/2024 1:15 PM EDT Temperature 36.7 C (98 F) 02/06/2024 9:02 AM EDT Respiratory Rate 14 02/13/2024 1:15 PM EDT Oxygen Saturation 95% 02/13/2024 1:15 PM EDT Inhaled Oxygen Concentration - - Weight 93 kg (205 lb) 02/13/2024 1:15 PM EDT Height 167.6 cm (5' 6 ) 02/06/2024 9:02 AM EDT Body Mass Index 33.09 02/06/2024 9:02 AM EDT Plan of Treatment Upcoming Encounters Date Type Department Care Team (Late st Contact Info) Description 07/29/2025 8:45 AM EST Office Visit [facility] ADULT [facility] [address] [place] [address] Jennifer Lindquist Health Maintenance Due Date Last Done Comments CT Colonography 1975 Colonoscopy 1975 Colorectal Cancer Screening 1975 Dental Oral Exam 1975 Dental Prophylaxis 1975 Dental X-Ray: Bitewings 1975 Depression Screening 1975 FIT DNA/Cologuard 1975 FIT 1975 FOBT 1975 HIV Screening 1975 Lipid Panel 1975 SDOH Screening 1975 Sigmoidoscopy 1975 Disability Screening 1975 Alcohol/Substance Use Screening 1987 Family Planning (PISQ) 1990 DTaP/Tdap/Td Vaccines (1 - Tdap) 1994 Hepatitis B Vaccines (1 of 3 - 19+ 3-dose series) 1994 Pneumococcal Vaccine: Pediat rics (0 to 5 Years) and At-Risk Patients (6 to 49) Years (1 of 2 - PCV) 1994 Pap Smear 1996 Cervical Cancer Screening 2005 HPV/Cotest 2005 Mammogram 2015 COVID-19 Vaccine (1 - 2024-2 6 season) 2025 Influenza Vaccine (#1) 2025 Zoster Vaccines (1 of 2) 2025 Tobacco Screening 03/29/2026 03/29/2025 Dental X-Ray: Full Mouth 03/30/2028 03/29/2025 RSV Patients and Pa tients Aged 60 years or older (1 - 1-dose 75+ series) 2050 HIB Vaccines Aged Out No longer eligi ble based on patient's age to complete this topic HPV Vaccines Aged Out No longer eligi ble based on patient's age to complete this topic Hepatitis A Vaccines Aged Out No long er eligible based on patient's age to complete this topic IPV Vaccines Aged Out No longer eligi ble based on patient's age to complete this topic Meningococcal B Vaccine Aged Out No l onger eligible based on patient's age to complete this topic Meningococcal Vaccine Aged Out No joanie romulo eligible based on patient's age to complete this topic RSV under 20 months Aged Out No longe r eligible based on patient's age to complete this topic Rotavirus Vaccines Aged Out No longer eligible based on patient's age to complete this topic Procedures Procedure Name Priority Date/Time Associated Diagnosis Comments PANORAMIC RADIOGRAPHIC IMAGE Routine 03/29/2025 9:00 AM EDT from Last 3 Months or Most Recently Relevant to Health Maintenance Insurance [place] [facility] [employer] STAND ADULT Care Teams Microbiology Laboratory Manager Relationship Specialty Start Date End Date Chiquita Anders NP [address] [place] [id number] PCP - General Family Medicine 02/13/24
[2025-07-03 20:40] VITALS: BP 147/86; PULSE 85; RESP 20; TEMP 36.3; O2SAT 96
[2025-07-03] MEDS: Sulfamethox/Trimeth 800/160 TABLET 1 TAB PO (20:42)
[2025-07-03 20:48] VITALS: BP 147/86; PULSE 85; RESP 20; TEMP 36.3; O2SAT 96
== END 2025-07-03 20:58 | disposition home or self-care (01) ==
PROVIDERS: Nurse Practitioner Family; Emergency Provider Emergency Medicine Emergency Medical Services
DX: N10 Acute pyelonephritis (principal); M54.50 Low back pain, unspecified
CPT/HCPCS: 36415; 80048; 80076; 81001; 81025; 85025; 85652; 86140; 87086; 87088; 87186; 99283; 99284

== ENCOUNTER 2025-07-12 18:14 | Inpatient (IN) | payer MEDICAID, SELFPAY ==
--- OUTSIDE RECORDS SUMMARY | 2024-08-14 08:00 | XMS_ITS ---
Author Organization [facility] Address [address] [place] [address] Care Team Providers Care Glass Unloading Equipment Tender Name Role Phone NO, PCP Primary Care Provider [facility], Nursing Unavailable [phone] REASON FOR VISIT Office: Intake Encounters Encounter Location Date Provider Diagnosis [address] [address] 08/14/2024 Nursing [facility] Encounter for screening for COVID-19 Z11.52 Assessments Encounter Date Diagnosis (ICD Code) Assessment Notes Treatment Notes Treatment Clinical Notes Section Notes 08/14/2024 Encounter for screening for COVID-19 (ICD-10 - Z11.52) Covid screening is negative. Discussed in detail with patient how to practice social distancing by avoiding public spaces and crowds now, wearing a mask in public to keep nose and mouth covered, and washing hands frequently especially before eating and after using the bathroom. Return to clinic if you develop any symtpoms of concern to be rescreened or go to the emergency room if you are having concerning symptoms for COVID-19. 08/14/2024 Other Plan Of Treatment Treatment Notes Assessment Notes Encounter for screening for COVID-19 Cov id screening is negative. Discussed in detail with patient how to practice social distancing by avoiding public spaces and crowds now, wearing a mask in public to keep nose and mouth covered, and washing hands frequently especially before eating and after using the bathroom. Return to clinic if you develop any symtpoms of concern to be rescreened or go to the emergency room if you are having concerning symptoms for COVID-19. Progress Notes * Nacho REDOB:1975 (49 yo F)Acc No.[id number]:08/14/2024 Progress Notes Patient: Evy MODI Provider: Mat CEDILLO :1975 A ge:49 Y S ex:Female Date:08/14/2024 Address:[address] [place], [place] [id number] Pcp:PCP NO Subjective: * Chief Complaints: * 1 . Office: Intake. * HPI: G eneral: Symptom Screen: - Fever in the last 1 week? Patient denies - New or worsening cough in the last 1 week? Patient denies. - Contact will known COVID exposure in last 5 days? Patient denies -new rash within last 3 weeks? Patient denies - Have you received the COVID-19 vaccine? - Have you received COVID-19 booster? - Have you been tested positive for COVID -19 in the last 7 days? If so where and why? RN/MA:. * ROS: N o acute C/P no acute SOB, No problem with urine, No heartburn or abdominal pain. Endorses being able to climb one fight of stairs without stopping due to SOB, Mood: stable, appetite: good, sleeping well. Denies new skin rashes. * Medical History: Objective: * Vitals: Assessment: * Assessment: 1. E ncounter for screening for COVID-19 - Z11.52 (Primary) Plan: * Treatment: * Images: Billing Information: * Visit Code: * Procedure Codes: * Electronic signature of Chicho shaw [facility] on 07/12/2025 at 08:41 PM EST Sign off status: Pending * Provider: Mat CEDILLO Date: 0 08/14/2024 Generated for Serge jay/Cj/Delfin on: 08:41 PM EST
--- OUTSIDE RECORDS SUMMARY | 2024-09-18 08:30 | XMS_ITS ---
Author Organization [facility] Address [address] [place] [phone] Care Team Providers Care Senior Staff Consultant Name Role Phone NO, PCP Primary Care Provider [facility], Nursing Unavailable [phone] REASON FOR VISIT Office: Intake Encounters Encounter Location Date Provider Diagnosis [address] [address] 09/18/2024 Nursing [facility] Plan Of Treatment No Information Progress Notes * JOSEDonnaBartolomeOB:1975 (49 yo F)Acc No.[id number]:09/18/2024 Progress Notes Patient: Evy MODI Provider: Mat christina [facility] :1975 A ge:49 Y S ex:Female Date:09/18/2024 Address:[address] [place], [place] [phone] Pcp:PCP NO Subjective: * Chief Complaints: * 1 . Office: Intake. * Medical History: Objective: * Vitals: Assessment: Plan: * Treatment: * Images: Billing Information: * Visit Code: * Procedure Codes: * Electronic signature of Chicho shaw [facility] on 07/12/2025 at 08:41 PM EST Sign off status: Pending * Provider: Mat christina [facility] Date: 0 09/18/2024 Generated for Serge jay/Cj/Delfin on: 08:41 PM EST
--- OUTSIDE RECORDS SUMMARY | 2025-03-27 16:00 | XMS_ITS ---
Author Organization [facility] Address [address] [place] [phone] Care Team Providers Care Back Padder Name Role Phone NO, PCP Primary Care Provider [facility], Nursing Unavailable [phone] Migration, Provider Unavailable Unavailable REASON FOR VISIT [facility] Conversion Encounter Medications Medication SIG (Take, Route, Fr equency, Duration) Notes Start Date End Date Status OLANZapine 5 MG 1 tab(s) orally 2x/d ay for 30 days 08/27/2024 Active hydrOXYzine HCl 50 MG 1 tab(s) orally every 4 hours 08/27/2024 Active Gabapentin 300 MG 1 cap(s) orally 3 ti mes a day for 30 day(s) 08/27/2024 Active traZODone HCl 100 MG as directed orally at bedtime 08/27/2024 Active Sertraline HCl 50 MG 1 tab(s) orally onc e a day for 30 day(s) 08/27/2024 Active Encounters Encounter Location Date Provider Diagnosis [address] [address] 03/27/2025 Provider Migration Plan Of Treatment Medication Medication Name Sig Start Date Stop Date Notes OLANZapine 5 MG 1 tab(s) orally 2x/day for 30 days 025 hydrOXYzine HCl 50 MG 1 tab(s) orally every 4 hours 2024 Gabapentin 300 MG 1 cap(s) orally 3 ti mes a day for 30 day(s) 08/27/2024 traZODone HCl 100 MG as directed orally at bedtime 025 Sertraline HCl 50 MG 1 tab(s) orally onc e a day for 30 day(s) 08/27/2024 Progress Notes * Nacho REDOB:1975 (49 yo F)Acc No.[id number]:03/27/2025 Patient: Evy MODI Provider: :1975 A ge:49 Y S ex:Female Date:03/27/2025 Address:[address] [place], [place] [phone] Pcp:PCP NO Subjective: * Chief Complaints: * 1 . [facility] Conversion Encounter. * Medical History: Objective: * Vitals: Assessment: Plan: * Treatment: * Images: Billing Information: * Visit Code: * Procedure Codes: * Electronic signature of Prov ider [facility] on 07/12/2025 at 08:41 PM EST Sign off status: Pending * Provider: Date: 0 03/27/2025 Generated for Serge jay/Cj/Yeniitting on: 1 08:41 PM EST
--- NOTE | ~2025-07-12 | XR_ITS ---
CLINICAL HISTORY: cough 2 view chest x-ray. Comparison: None Findings: No consolidation or effusion. Cardiac and mediastinal contours are unremarkable. Bones unremarkable. Impression: 1. No acute pulmonary disease. This document has been electronically signed by: Rodolfo Cueto MD on 07/12/2025 19:40:58
[2025-07-12 18:23] VITALS: BP 134/77; PULSE 120; O2SAT 80
[2025-07-12 18:35] VITALS: BP 107/59; PULSE 97; RESP 16; TEMP 39.3; O2SAT 97; BMI 40.3
--- NOTE | 2025-07-12 18:50 | ECG_ITS ---
Test Reason : OVERDOSE Blood Pressure : */* mmHG Vent. Rate : 89 BPM Atrial Rate : 89 BPM P-R Int : 150 ms QRS Dur : 76 ms QT Int : 376 ms P-R-T Axes : 58 57 51 degrees QTcB Int : 457 ms Normal sinus rhythm Normal ECG No previous ECGs available Referred By: Junior Jansen Electronically Signed By: DENISE REYES
[2025-07-12 19:07] LABS: MANUAL DIFF FLAG NO
[2025-07-12 19:09] LABS: Hematocrit 39.5 % (37.0-47.0); Hemoglobin 12.5 g/dl (12.0-16.0); Imm Gran Abs Auto 0.03 X10*3/uL (0.00-0.03); Imm Gran Pct Auto 0.5 % (0.0-0.4); Lymphocytes Absolute Auto 0.4 X10*3/uL (1.2-4.9); Mean Corpuscular HGB Conc 31.6 g/dl (31.0-35.0); Mean Corpuscular Hemoglobin 29.6 pg (27.0-33.0); Mean Corpuscular Volume 93.4 fL (80.0-98.0); NRBC Abs Auto 0.000 X10*3/uL (0.0-0.012); NRBC Pct Auto 0.0 /100WBC (0.0-0.2); Platelet Count 149 X10*3/uL (160-400); Red Blood Count 4.23 X10*6/uL (4.20-5.50); White Blood Count 5.7 X10*3/uL (4.8-10.8)
[2025-07-12 19:37] LABS: Appearance Urine Clear; Glucose Urine UA Negative (Negative); PH 5.0 (5.0-9.0); Specific Gravity - Urine 1.015 (1.005-1.025); UMIC TRIGGER UACC YES
[2025-07-12 19:46] LABS: Cannabinoid Screen Urine Not Detected (Not Detect)
[2025-07-12 20:07] LABS: Resp Syncy Virus RNA Qual PCR NEGATIVE (Negative); SARS COV2 PCR INHOUSE POSITIVE (Negative)
[2025-07-12 20:21] LABS: Alanine Aminotransferase 24 U/L (0-31); Albumin Level 3.8 g/dL (3.5-5.0); Alkaline Phosphatase 119 U/L (39-117); Anion Gap 10 (12-20); Aspartate Amino Transferase 32 U/L (5-31); Blood Urea Nitrogen 12 mg/dL (9-16); Calcium 9.0 mg/dL (8.4-10.2); Carbon Dioxide 31 mmol/L (22-29); Chloride 106 mmol/L (96-108); Creatinine Clr Calc Pharmacy 86.9; Estimated Glomerular Filt Rate 59; Lipase 17 U/L (8-78); Potassium 4.9 mmol/L (3.3-5.1); Sodium 142 mmol/L (135-145); Total Protein 7.0 g/dL (6.5-8.0)
--- NOTE | 2025-07-12 20:24 | ED_ITS ---
HPI - General Adult General Chief complaint: Overdose Stated complaint: coming rehab ?overdose, 2 narcan Time Seen by Provider: 07/12/25 18:42 Source: patient, RN notes reviewed and old records reviewed Mode of arrival: EMS Limitations: no limitations History of Present Illness ED Provider: Inderjit PICKENS narrative: 49-year-old female with a past medical history significant for substance abuse presents for evaluation after being found unresponsive at a sober living home The patient was administered Narcan 2 mg intranasally and reportedly had a response. She arrives to the ER in his awake, alert and oriented. She reports ?I think I overdosed on my methadone. ? She reports that this has happened in the past pain She explicitly denies any other alcohol or drug abuse. She reports that she feels well. Of note the patient arrived febrile at 102, she reports that she was unaware of this. She does admit to a cough Denies abdominal pain, nausea and vomiting Related Data Previous Rx's ?Medication ?Instructions ?Recorded sulfamethoxazole 800 1 tab PO BID #28 tabs mg-trimethoprim 160 mg tablet (Bactrim DS) Allergies Allergy/AdvReac Type Severity Reaction Status Date / Time amoxicillin (From Augmentin) Allergy Unknown Verified 07/12/25 18:39 clavulanic acid (From Allergy Unknown Verified 07/12/25 18:39 Augmentin) Review of Systems 2 Constitutional: Constitutional: Reports body ache(s), Reports fever(s) and Denies headache(s) Eyes: Eyes: Denies blurry vision ENT: Denies vertigo, Denies dizziness and Denies headache(s) Cardiovascular: Cardiovascular: Denies chest pain and Denies dyspnea on exertion Respiratory: Respiratory: Reports cough and Denies dyspnea on exertion Gastrointestinal: Gastrointestinal: Denies abdominal pain, Denies nausea and Denies vomiting Musculoskeletal: Musculoskeletal: Denies back pain Integumentary/Breasts: Skin/Breast: Denies rash Neurologic: Denies vertigo, Denies dizziness and Denies headache(s) [facility] Past Medical History Medical History (Updated 07/12/25 @ 22:56 by Junior Jansen) Polysubstance abuse Social History Social History Smoked in Last 30 Days: Yes Substance Use Type: Former Substance User Advance Directives: No Advance Directives Information Provided: No Do you have a plan to hurt others: No Plan Physical Exam ED Vital Signs: Vital Signs - 24 hr 07/12/25 18:35 07/12/25 21:46 Temperature 102.7 F H Pulse Rate 97 Respiratory Rate 16 Blood Pressure 107/59 L Pulse Oximetry 97 87 L Oxygen Delivery Method Room Air BMI result Body Mass Index 40.3 Const General: healthy appearing, comfortable, no acute distress, alert and awake Nutritional Appearance: well nourished Orientation/consciousness: patient oriented x3 HENMT Head: Yes normocephalic and Yes atraumatic Throat: Yes posterior oropharynx normal Eyes Eyelids: Yes eyelids normal Conjunctivae: conjunctivae normal Sclerae: sclerae normal Corneas: corneas normal Pupils: Equal, round and reactive pupils present EOM: EOMs intact bilaterally Neck Neck: Yes full ROM Resp Effort & Inspection: normal respiratory effort, able to speak in complete sentences, no audible wheezes and not labored Auscultation: clear to auscultation bilaterally Cardio Rate: regular rate Rhythm: regular rhythm GI Inspection: No distended Palpation (GI): Soft to palpation, not firm, nontender, no guarding and not rigid Skin General skin exam: elasticity normal Neuro General: patient oriented x3 Cranial nerves: Yes CN's II-XII intact bilaterally, Yes Equal, round and reactive pupils present and Yes Bilaterally intact EOM present Cognition (Neuro): normal cognition Extrem Other: Moving all extremities well without any obvious deformities Course Reevaluation(s) Reevaluation #1: The patient tested positive for COVID-19. I had anticipated discharging her back to her sober living facility, however she was hypoxic at rest. We walked her in her ambulatory oxygen saturation was 87%. We will discuss with the hospitalist for admission. I did make a mistake and ordered Tamiflu as I thought patient influenza, but in fact had COVID-19. This was administered prior to me realizing that she would not need it. Time: 22:56 Medications Administered Discontinued Medications Generic Name Dose Route Start Last Admin Trade Name Claudy PRN Reason Stop Dose Admin Acetaminophen 975 mg 07/12/25 18:53 07/12/25 19:00 Acetaminophen 325 Mg Tablet PO 07/12/25 18:54 975 mg ONCE ONE Administration Oseltamivir Phosphate 75 mg 07/12/25 22:15 07/12/25 22:39 Oseltamivir Phosphate 75 Mg Capsule PO 07/12/25 22:16 75 mg ONCE ONE Administration Medical Decision Making Medical Decision Making [facility] Narrative: 49-year-old female presents for evaluation of a period of unresponsiveness. She was given Narcan with good effect. She denies any illicit substances. She arrives febrile. Picture seemed consistent with a viral illness. Given her. When responsive we will get a chest x-ray to evaluate for aspiration pneumonia. She will be given Tylenol for her fever. The patient does not meet sepsis criteria as she has no leukocytosis, she is not hypoxic, tachypneic or tachycardic. Blood pressure of 107/59. Differential Diagnosis Differential Diagnoses: The differential diagnosis associated with the presentation includes Influenza COVID-19 Aspiration pneumonia Overdose Substance abuse Admission/Observation Consideration of admission/observation: Escalation of care including admission/observation considered Lab Data [facility] Lab Attestation statement: I reviewed the patient's lab results. No leukocytosis or anemia. No significant electrolyte abnormalities warranting intervention. Positive for COVID-19 07/12/25 19:02 07/12/25 19:57 Labs: Lab Results 07/12/25 07/12/25 07/12/25 Range/Units 19:02 19:30 19:57 WBC 5.7 (4.8-10.8) X10*3/uL RBC 4.23 (4.20-5.50) X10*6/uL Hgb 12.5 (12.0-16.0) g/dl Hct 39.5 (37.0-47.0) % MCV 93.4 (80.0-98.0) fL MCH 29.6 (27.0-33.0) pg MCHC 31.6 (31.0-35.0) g/dl RDW 13.0 (11.0-16.0) % Plt Count 149 L (160-400) X10*3/uL MPV 9.6 (9.4-12.3) fL Immature Gran % (Auto) 0.5 H (0.0-0.4) % Neut % (Auto) 80.4 H (45-73) % Lymph % (Auto) 7.1 L (20-40) % [place] % (Auto) 9.5 (2-11) % Eos % (Auto) 1.4 (0-4) % Baso % (Auto) 1.1 (0-2) % Lymph # (Auto) 0.4 L (1.2-4.9) X10*3/uL [place] # (Auto) 0.5 (0.1-1.2) X10*3/uL Eos # (Auto) 0.1 (0.0-0.4) X10*3/uL Baso # (Auto) 0.1 (0.0-0.2) X10*3/uL Abs Immat Gran (auto) 0.03 (0.00-0.03) X10*3/uL Absolute Neuts (auto) 4.6 (2.0-8.3) x10*3/uL Absolute Nucleated RBC 0.000 (0.0-0.012) X10*3/uL Nucleated RBC % (auto) 0.0 (0.0-0.2) /100WBC Sodium 142 (135-145) mmol/L Potassium 4.9 D (3.3-5.1) mmol/L Chloride 106 (96-108) mmol/L Carbon Dioxide 31 H (22-29) mmol/L Anion Gap 10 L (12-20) BUN 12 (9-16) mg/dL Creatinine 1.00 (0.5-1.4) mg/dL Estim Creat Clear Calc 86.9 Estimated GFR 59 Random Glucose 92 (60-115) mg/dL Calcium 9.0 (8.4-10.2) mg/dL Total Bilirubin 0.1 (0.0-1.0) mg/dL AST 32 H (5-31) U/L ALT 24 (0-31) U/L Alkaline Phosphatase 119 H (39-117) U/L Total Protein 7.0 (6.5-8.0) g/dL Albumin 3.8 (3.5-5.0) g/dL Lipase 17 (8-78) U/L Beta HCG, Quant < 2 mIU/mL Urine Color Yellow Urine Appearance Clear Urine pH 5.0 (5.0-9.0) Ur Specific [place] 1.015 (1.005-1.025) Urine Protein Negative (Neg-Trace) mg/dL Urine Glucose (UA) Negative (Negative) mg/dL Urine Ketones Negative (Negative) mg/dL Urine Blood Negative (Negative) Urine Nitrite Negative (Negative) Ur Leukocyte Esterase Trace H (Negative) Urine RBC 0-2 (0-2) /HPF Urine WBC 0-5 (0-5) /HPF Ur Squamous Epith Cells 6-10 (0-2) /HPF Urine Bacteria None Seen (None Seen) Hyaline Casts 0-2 (0-2) /LPF Urine Opiates Screen Not Detected (Not Detect) Ur Buprenorphine Scrn Not Detected (Not Detect) ng/mL Ur Oxycodone Screen Not Detected (Not Detect) ng/mL Urine Methadone Screen Positive H (Not Detect) ng/mL Urine Fentanyl Screen Not Detected (Not Detect) Ur Barbiturates Screen Not Detected (Not Detect) Ur Phencyclidine Scrn Not Detected (Not Detect) Ur Amphetamines Screen Not Detected (Not Detect) U Benzodiazepines Scrn Not Detected (Not Detect) Urine Cocaine Screen Not Detected (Not Detect) U Marijuana (THC) Screen Not Detected (Not Detect) Ethyl Alcohol < 10 mg/dL Influenza Type A (PCR) NEGATIVE (Negative) Influenza Type B (PCR) NEGATIVE (Negative) RSV RNA Qual (PCR) NEGATIVE (Negative) SARS-CoV-2 RNA (RT-PCR) POSITIVE A (Negative) Independent Interpretation I performed an independent interpretation of an: Plain X-Ray Interpretation: No focal consolidation Radiology Impression Discussion of test interpretation with radiology: I have reviewed the radiologist's reading. Radiologist Impression: Findings: No consolidation or effusion. Cardiac and mediastinal contours are unremarkable. Bones unremarkable. Impression: 1. No acute pulmonary disease. This document has been electronically signed by: Rodolfo Cueto MD on 07/12/2025 19:40:58 Discharge Plan Discharge Clinical Impression: COVID Patient Disposition: Admitted As Inpatient Print Language: Macedonian
--- OUTSIDE RECORDS SUMMARY | 2025-07-12 20:42 | XMS_ITS | Clinical Summary ---
Author Organization [employer] Address [address] [facility] [address] [place] [address] Care Team Providers Care Jig Bore Operator Name Role Phone Chiquita Anders NP Primary Care Provider [phone] Allergies Active Allergy Reactions Criticality Noted Date [...] 05/04/2025 Population Health Risk Score Community Care [facility] (C3) Department [address] [id number] Provider, Population Health Generic from Last 3 [...] Description 07/29/2025 8:45 AM EST Office Visit [facility] [address] [place] [address] Jennifer Lindquist Health Maintenance Due Date [...] Relevant to Health Maintenance [place] [facility] STAND ADULT Care Teams Jig Bore Operator Relationship Specialty Start Date End Date Chiquita Anders NP [address] [place] [id number] PCP - General Family Medicine 02/13/24
--- OUTSIDE RECORDS SUMMARY | 2025-07-12 20:42 | XMS_ITS | Patient Health Record ---
Author Organization [facility] Address [address] [place] [id number] Care Team Providers Care Siphoner Name Role Phone NO, PCP Primary Care Provider [phone] [facility], Nursing Unavailable [phone] Migration, Provider Unavailable Unavailable Reason For Referral [...] W/U Status Risk Notes Problem Opioid dependence (26083576) Opioid dependence, uncomplicated (F11.20) Active confirmed Problem Severe recurrent major depression without psychotic features (02648028) Major depressive disorder, recurrent severe without psychotic features (F33.2) Active confirmed Problem Anxiety disorder (066671966) Anxiety disorder, unspecified (F41.9) Active confirmed Problem Post-traumatic stress disorder (01369469) Post-traumatic stress disorder, unspecified (F43.10) Active confirmed Encounters Encounter Location Date Provider Diagnosis [address] [phone] 03/27/2025 Provider Migration [address] [phone] 08/27/2024 Nursing [facility] [address] [place], [place] [id number] 09/03/2024 Nursing [facility] Assessments Encounter Date Diagnosis (ICD Code) Assessment Notes Treatment Notes Treatment Clinical Notes Section Notes 08/14/2024 Other Plan Of Treatment No Information Insurance Providers Payer Name Payer Address Payer Phone Subscriber Number Group Number Insured Name Patient Relationship to Insured Coverage Start Date Coverage End Date [place] Medicaid C3 [address] [place], [place] [id number] Evy Garcia Self - patient is the insured 4
[2025-07-12 21:46] VITALS: O2SAT 87
--- NOTE | 2025-07-12 21:58 | PC.NURSE ---
Pt ambulated to restroom with slow steady gait 02 sat dropping to 87-88 during ambulation Pt back in bed and attached to 1L NC 02 sat back to 92 Provider notified and aware Plan of care ongoing.
[2025-07-12 23:15] VITALS: BP 117/49; PULSE 86; RESP 20; TEMP 37.3; O2SAT 92
--- NOTE | 2025-07-12 23:22 | PC.NURSE ---
hospitalist at bedside, pt lethargic, falling asleep during questioning. O2 91% on 1L NC.
--- NOTE | 2025-07-12 23:28 | P.HPHOSP_ITS ---
History of Present Illness Date of Service: 07/12/25 Attending physician on admission: Bradley Rice Chief Complaint: unresponsive Patient is a 40-year-old female with a past medical history significant for polysubstance abuse on methadone currently residing at a sober living facility, moderate persistent asthma, mood disorder and morbid obesity, who presented to the ED via EMS after being found unresponsive in the bathroom at her care facility. She was found to be hypoxic in the 70s with a respiratory rate of 8. The patient was responsive to 2 mg intranasal Narcan. She reports a headache and nausea after receiving the Narcan. She denies any drug use he reports she takes her methadone as prescribed. She also notes that she was going to decrease her methadone dose tomorrow as she has been getting very drowsy with her methadone and new hydroxyzine prescription. She was also found to have a fever of 102.7, COVID positive, chest x-ray negative. With ambulation her oxygen drops to 87%. The patient is unable to provide much additional history as she is nodding off and not following the conversation well. Review of Systems 2 Constitutional: Constitutional: Denies body ache(s), Denies chills, Reports fatigue, Reports fever(s) and Reports headache(s) Eyes: Eyes: Denies change in vision ENT: Reports headache(s), Denies nasal congestion and Denies sore throat Cardiovascular: Cardiovascular: Denies chest pain, Denies rapid heart rate, Denies leg edema, Denies lightheadedness and Denies dyspnea Respiratory: Respiratory: Denies chest congestion, Reports cough, Denies dyspnea and Denies wheezing Gastrointestinal: Gastrointestinal: Denies abdominal pain, Denies diarrhea, Reports nausea and Denies vomiting Genitourinary: Genitourinary: Denies dysuria and Denies urinary urgency Musculoskeletal: Musculoskeletal: Reports myalgias Integumentary/Breasts: Skin/Breast: Denies rash Neurologic: Denies confusion and Reports headache(s) Psychiatric: Psychiatric: Denies confusion Endocrine: Endocrine: Reports fatigue Hematologic/Lymphatic: Hematologic/Lymphatic: Denies easy bleeding Allergic/Immunologic: Allergic/Immunologic: Denies wheezing [facility] Medical History (Updated 07/12/25 @ 23:35 by Faith Vazquez PA-C) Mood disorder Morbid obesity with BMI of 40.0-44.9, adult Moderate persistent asthma Polysubstance abuse Functional capacity: independent ambulation Social History Smoked in Last 30 Days: Yes Substance Use Type: Former Substance User Advance Directives: No Advance Directives Information Provided: No Do you have a plan to hurt others: No Plan Narrative: Smoking 3 cigarettes per day, currently quitting, no alcohol, on methadone, no additional drug use Meds Allergies Allergy/AdvReac Type Severity Reaction Status Date / Time amoxicillin (From Augmentin) Allergy Unknown Verified 07/12/25 18:39 clavulanic acid (From Allergy Unknown Verified 07/12/25 18:39 Augmentin) Active Medications: Current Medications Acetaminophen (Acetaminophen 325 Mg Tablet) 650 mg PO Q6H PRN PRN Reason: Pain, Mild 1-3,fever,headache Calcium Carbonate (Calcium Carbonate 750 Mg Tab.Chew) 750 mg PO Q4H PRN PRN Reason: Heartburn Enoxaparin Sodium (Enoxaparin Sodium 40 Mg/0.4 Ml Syringe) 40 mg SUBCUT Q24H HARRIS Ceftriaxone Sodium 1 gm/ (Sodium Chloride) 50 mls @ 100 mls/hr IV Q24H HARRIS Metronidazole (Flagyl) 500 mg in 100 mls @ 100 mls/hr IV Q8H HARRIS Magnesium Hydroxide (Milk Of Magnesia 30 Ml Oral.Susp) 30 ml PO DAILY PRN PRN Reason: Constipation Melatonin (Melatonin 3 Mg Tablet) 6 mg PO BEDTIME PRN PRN Reason: Insomnia Naloxone HCl (Naloxone Hcl 0.4 Mg/Ml Vial) 0.04 mg IVPUSH Q2M PRN PRN Reason: Respiratory Rate < 10 Oxycodone HCl (Oxycodone Hcl Immed Release 5 Mg Tablet) 5 mg PO Q6H PRN PRN Reason: Pain, Severe (Pain Scale 7-10) Prochlorperazine Edisylate (Prochlorperazine Edisylate 10 Mg/2 Ml Vial) 5 mg IVPUSH Q6H PRN PRN Reason: Nausea and Vomiting Sodium Chloride (0.9 % Sodium Chloride Flush 3 Ml Syringe) 3 ml IVFLUSH QSHIFT HARRIS Tramadol HCl (Tramadol Hcl 50 Mg Tablet) 50 mg PO Q6H PRN PRN Reason: Pain, Moderate(Pain Scale 4-6) Physical Exam 2 Vital Signs and Narrative: Vital Signs: Last Vital Signs Temp 99.1 F 07/12/25 23:15 Pulse 86 07/12/25 23:15 Resp 20 07/12/25 23:15 BP 117/49 L 07/12/25 23:15 Pulse Ox 92 07/12/25 23:15 O2 Del Method Nasal Cannula 07/12/25 23:15 O2 Flow Rate 1 07/12/25 23:15 BMI result Body Mass Index 40.3 General: AOx3, nodding off during conversation, unaware to why she is here, no acute distress HEENT: pinpoint pupils Resp: CTA bilaterally CVS: S1, S2, RRR GI: +BS, NT, no distention Skin: Warm, dry Neuro: Cranial nerves II-XII grossly intact bilaterally. Motor grossly intact bilaterally Extremities: No pitting edema Psych: Appropriate affect. drowsy Const: General: No confusion Orientation/consciousness: No confusion Neuro: General: No confusion Results Labs 07/12/25 19:02 07/12/25 19:57 Labs: Laboratory Results - last 24 hr 07/12/25 07/12/25 07/12/25 19:02 19:30 19:57 MCV 93.4 MCH 29.6 MCHC 31.6 RDW 13.0 Plt Count 149 L MPV 9.6 Immature Gran % (Auto) 0.5 H Neut % (Auto) 80.4 H Lymph % (Auto) 7.1 L [place] % (Auto) 9.5 Eos % (Auto) 1.4 Baso % (Auto) 1.1 Lymph # (Auto) 0.4 L [place] # (Auto) 0.5 Eos # (Auto) 0.1 Baso # (Auto) 0.1 Abs Immat Gran (auto) 0.03 Absolute Neuts (auto) 4.6 Absolute Nucleated RBC 0.000 Nucleated RBC % (auto) 0.0 Anion Gap 10 L Estim Creat Clear Calc 86.9 Estimated GFR 59 Random Glucose 92 Calcium 9.0 Total Bilirubin 0.1 AST 32 H ALT 24 Alkaline Phosphatase 119 H Total Protein 7.0 Albumin 3.8 Lipase 17 Beta HCG, Quant < 2 Urine Color Yellow Urine Appearance Clear Urine pH 5.0 Ur Specific [place] 1.015 Urine Protein Negative Urine Glucose (UA) Negative Urine Ketones Negative Urine Blood Negative Urine Nitrite Negative Ur Leukocyte Esterase Trace H Urine RBC 0-2 Urine WBC 0-5 Ur Squamous Epith Cells 6-10 Urine Bacteria None Seen Hyaline Casts 0-2 Urine Opiates Screen Not Detected Ur Buprenorphine Scrn Not Detected Ur Oxycodone Screen Not Detected Urine Methadone Screen Positive H Urine Fentanyl Screen Not Detected Ur Barbiturates Screen Not Detected Ur Phencyclidine Scrn Not Detected Ur Amphetamines Screen Not Detected U Benzodiazepines Scrn Not Detected Urine Cocaine Screen Not Detected U Marijuana (THC) Screen Not Detected Ethyl Alcohol < 10 Influenza Type A (PCR) NEGATIVE Influenza Type B (PCR) NEGATIVE RSV RNA Qual (PCR) NEGATIVE SARS-CoV-2 RNA (RT-PCR) POSITIVE A Assessment and Plan (1) Methadone overdose: Status: Acute (2) Acute hypoxic respiratory failure: Status: Acute (3) COVID: Status: Acute (4) Morbid obesity with BMI of 40.0-44.9, adult: Status: Acute Plan Patient is a 40-year-old female with a past medical history significant for polysubstance abuse on methadone currently residing at a sober living facility, moderate persistent asthma, mood disorder and morbid obesity, who presented to the ED via EMS after being found unresponsive in the bathroom at her care facility. acute hypoxic respiratory failure secondary to methadone overdose and COVID, suspected aspiration pneumonia - SIRS +, however tachycardia likely due to narcan - narcan 0.04mg IV Q2M PRN until RR >10 - titrate O2 PRN - discontinue hydroxyzine due to interaction with methadone - will need methadone dose verified in AM - contact and airborne precautions - ceftriaxone and flagyl for suspected aspiration pneumonia - monitor CBC and BMP moderate persistent asthma, no acute exacerbation - continue home meds mood disorder - continue home meds morbid obesity - BMI 40.4 - weight loss encouraged thrombocytopenia - monitor platelets tobacco use disorder - cessation encouraged med rec pending full code VTE prophy: lovenox Patient with acute hypoxic respiratory failure secondary to methadone overdose and COVID with suspected aspiration pneumonia, requiring admission for observation. Quality Stroke Does the patient have a stroke diagnosis?: No VTE Prior VTE?: No VTE Risk Level:: Medical - moderate - high VTE Device Contraindication: Treatment Not Indicated VTE Drug Contraindication: N/A - Med Ordered
[2025-07-12 23:51] LABS: Magnesium 1.8 mg/dL (1.6-2.6)
[2025-07-13] MEDS: Lactated Ringers 1,000 ML 999 ML IV (00:49)
--- NOTE | 2025-07-13 00:49 | PC.NURSE ---
pt reporting pins and needles and tingling all over body after ABX infused. Hospitalist aware. medicated per SEP. will wait to admin next abx per hospitalist
[2025-07-13 06:55] LABS: MANUAL DIFF FLAG NO
[2025-07-13 07:16] VITALS: BP 132/52; PULSE 71; RESP 19; TEMP 36.6; O2SAT 91
[2025-07-13 07:19] LABS: Hematocrit 39.8 % (37.0-47.0); Hemoglobin 12.2 g/dl (12.0-16.0); Imm Gran Abs Auto 0.01 X10*3/uL (0.00-0.03); Imm Gran Pct Auto 0.2 % (0.0-0.4); Lymphocytes Absolute Auto 1.2 X10*3/uL (1.2-4.9); Mean Corpuscular HGB Conc 30.7 g/dl (31.0-35.0); Mean Corpuscular Hemoglobin 29.3 pg (27.0-33.0); Mean Corpuscular Volume 95.4 fL (80.0-98.0); NRBC Abs Auto 0.000 X10*3/uL (0.0-0.012); NRBC Pct Auto 0.0 /100WBC (0.0-0.2); Platelet Count 168 X10*3/uL (160-400); Red Blood Count 4.17 X10*6/uL (4.20-5.50); White Blood Count 4.4 X10*3/uL (4.8-10.8)
[2025-07-13 07:38] LABS: Anion Gap 12 (12-20); Blood Urea Nitrogen 12 mg/dL (9-16); Calcium 8.8 mg/dL (8.4-10.2); Carbon Dioxide 29 mmol/L (22-29); Chloride 105 mmol/L (96-108); Creatinine Clr Calc Pharmacy 102.3; Estimated Glomerular Filt Rate > 60; Potassium 4.5 mmol/L (3.3-5.1); Sodium 141 mmol/L (135-145)
[2025-07-13 10:29] VITALS: BP 122/64; PULSE 69; RESP 16; TEMP 36.8; O2SAT 95
--- NOTE | 2025-07-13 10:53 | PHA.MEDREC ---
Addendum entered by Liv Laboy RPh 07/13/25 12:50: MED REC REVIEWED BY [facility]. Also spoke to staff at [facility] who confirmed dose and direction of medications. Original Note: Pharmacy Consult ? Medication Reconciliation Pharmacy has completed the medication reconciliation. Spoke with pt and she confirmed she is from the [facility] in [place]. Got med list from facility but had to verify directions on pt meds, facility only gave us med names and doses. Spoke with pt and she confirmed her medications from facility are up to date and confirmed how she is taking them.
[2025-07-13 13:31] VITALS: BP 109/54; PULSE 70; TEMP 37.6; O2SAT 97
--- NOTE | 2025-07-13 15:49 | MHC.CM.PN ---
PT LIVES ALONE IS ACTIVE WITH [facility] MAY HAVE OWN RIDE HOME PT HAS ACP 1 X WEEKLY FOR 3 HRS A WEEK DC PLAN HOME W/SERVICES
[2025-07-13] MEDS: metroNIDAZOLE/NS 500 MG/100 ML PIGGYBACK 100 MG IV (16:09)
--- NOTE | 2025-07-13 16:19 | PC.NURSE ---
Methadone verified with [facility]- [facility], [address] [place] [address] [phone] Per Hayley ECKERT- pt last dosed in person 07/06/25 @10am with 100mg, given 6 take home bottles. Verification form completed and faxed to pharmacy.
--- NOTE | 2025-07-13 16:41 | HE.PHANOTE ---
METHADONE Dose: 100mg, last dosed at the clinic on 07/06/25 @1000. Pt given 6 take home bottles per BABAR Hardy at [facility]
[2025-07-13] MEDS: methADONE HCl 20 MG/2 ML ORAL.CONC 100 MG PO (18:06)
--- NOTE | 2025-07-13 20:50 | PC.NURSE ---
facility where she lives called for update on pt condition. explained pt will be admitted to hospital according to the pt chart. all questions and concerns addressed at this time
--- NOTE | 2025-07-13 23:11 | HO.NURTONUR ---
Pt is a 49 YO Female from sober living home Was found unresponsive and given 2mg IN Narcan ?overdose from her methadone-per patient Was noted to be febrile, tachycardic in ED +Covid walking pulse oximetry was 87% so decision to admit was made Being treated for suspected aspiration PNA-Cetriaxone and Flagyl Ambulatory in dept with standby assist Currently on room air #20 PIV to right AC. Alert and orieneted x4
[2025-07-14] VITALS: PULSE 79; RESP 16; TEMP 36.8; O2SAT 93
[2025-07-14 00:14] VITALS: BMI 38.8
[2025-07-14 00:15] VITALS: BP 105/63; PULSE 72; RESP 16; TEMP 36.6; O2SAT 92
[2025-07-14] MEDS: metroNIDAZOLE/NS 500 MG/100 ML PIGGYBACK 100 MG IV ×2 (00:19→07:54)
[2025-07-14] MEDS: 0.9 % Sodium Chloride Flush 3 ML SYRINGE IVFLUSH ×2 (00:20→07:54)
--- NOTE | 2025-07-14 02:14 | PC.NURSE ---
patient is refusing bed alarm at this time
[2025-07-14 03:31] VITALS: BP 100/75; PULSE 70; RESP 18; TEMP 36.6; O2SAT 92
[2025-07-14 07:22] VITALS: BP 120/56; PULSE 78; RESP 18; TEMP 37.2; O2SAT 92
[2025-07-14] MEDS: methADONE HCl 20 MG/2 ML ORAL.CONC 100 MG PO (07:54)
[2025-07-14 08:40] LABS: Procalcitonin 0.04 ng/mL
--- NOTE | 2025-07-14 09:47 | MHC.CM.PN ---
Marya 07/14/25, Pt. lives in [facility]ber living apt. She does not have home health services or use DME. She goes to [facility] for Methadone. She is on a waiting list for PCP at [facility], she goes to [facility] if she needs to and they see her. She will need transport home at [place], DCP: home, self care, CM to follow for DC needs.
[2025-07-14 11:31] VITALS: BP 103/58; PULSE 78; RESP 18; TEMP 36.1; O2SAT 94
--- NOTE | 2025-07-14 11:50 | PM.DS ---
DS: Providers Provider Date of admission: 07/13/25 10:28 Date of discharge: 07/14/25 Primary care physician: Unknown Physician DS: Diagnosis Discharge Diagnosis (1) Acute hypoxic respiratory failure: Status: Acute (2) COVID: Status: Acute (3) Morbid obesity with BMI of 40.0-44.9, adult: Status: Acute (4) Altered mental status: Status: Acute DS: Summary Hospital Course Hospital Course: Admission note HPI Patient is a 40-year-old female with a past medical history significant for polysubstance abuse on methadone currently residing at a sober living facility, moderate persistent asthma, mood disorder and morbid obesity, who presented to the ED via EMS after being found unresponsive in the bathroom at her care facility. She was found to be hypoxic in the 70s with a respiratory rate of 8. The patient was responsive to 2 mg intranasal Narcan. She reports a headache and nausea after receiving the Narcan. She denies any drug use he reports she takes her methadone as prescribed. She also notes that she was going to decrease her methadone dose tomorrow as she has been getting very drowsy with her methadone and new hydroxyzine prescription. She was also found to have a fever of 102.7, COVID positive, chest x-ray negative. With ambulation her oxygen drops to 87%. The patient is unable to provide much additional history as she is nodding off and not following the conversation well. Hospital course The patient was monitored in the hospital for reported acute hypoxic respiratory failure secondary to methadone overdose in the setting of COVID-19 infection, with suspected aspiration pneumonia. The patient met SIRS criteria; tachycardia was felt to be secondary to naloxone administration rather than ongoing sepsis. Oxygen was titrated as needed to maintain adequate saturation. she was weaned off O2 supplement. Hydroxyzine was discontinued due to potential interaction with methadone. Urine drug screen was negative for substances other than prescribed methadone. The patient subsequently tolerated her home methadone dose without recurrence of respiratory depression or signs of overdose. Home medications were continued as prescribed. The patient was placed on contact and airborne precautions for COVID-19. Ceftriaxone and metronidazole were initiated for suspected aspiration pneumonia but Procalcitonin and CXR did not show any signs of bacterial infection. Supportive care for COVID-19 infection was recommended. Laboratory monitoring included serial CBC and BMP. Discharge plan Continue home medications Hydroxyzine was discontinued due to potential interaction with methadone Drink plenty of fluids Increase physical activity as tolerated Avoid any kinds of drugs Time Attestation Discharge Coordination Time (in mins): 34 Quality: Safe Use of Opioids Does Pt have an Active Cancer Diagnosis on the Problem List?: No Quality: Stroke Does the patient have a stroke diagnosis?: No Physical Exam Exam: Exam: Constitutional : interactive, obese, not in distress Cardiovascular : no JVP, no lower extremity edema Respiratory : bilateral chest movement, not in resp distress Gastrointestinal: soft, lax, Non tender Skin : Warm, Dry Neurological : Alert & oriented , No focal deficit Vital Signs: Vital Signs: Last Vital Signs Temp 96.9 F 07/14/25 11:31 Pulse 78 07/14/25 11:31 Resp 18 07/14/25 11:31 BP 103/58 L 07/14/25 11:31 Pulse Ox 94 07/14/25 11:31 O2 Del Method Room Air 07/14/25 11:31 O2 Flow Rate 2 07/13/25 07:16 BMI result Body Mass Index 38.8 DS: Data Data Completed and Pending Labs on day of discharge: Laboratory Results - last 24 hr 07/13/25 05:57 Procalcitonin 0.04 Preliminary micro results at discharge 07/13/25 00:10 Blood Culture - Preliminary Blood - Venous No growth after 24 hours. 07/13/25 00:10 Blood Culture - Preliminary Blood - Venous No growth after 24 hours. Discharge Plan Discharge Anticipated Discharge Date/Time: 07/14/25 11:48 Patient Disposition: Home, Self-Care Discharge Diagnosis: Covid infection Referrals: Physician,Unknown J [Primary Care Provider, Medical] - 1 Week Discharge Medications: Continued clonidine HCl 0.1 mg tablet 0.1 mg PO TID PRN (Reason: Anxiety) gabapentin 600 mg tablet 600 mg PO TID risperidone 3 mg tablet 3 mg PO BEDTIME trazodone 100 mg tablet 100 mg PO BEDTIME sertraline 50 mg tablet 50 mg PO DAILY risperidone 1 mg tablet 1 mg PO DAILY melatonin 5 mg tablet,disintegrating 5 mg PO BEDTIME ibuprofen 200 mg Tablet 200 mg PO Q4-6H PRN (Reason: Pain) loratadine 10 mg tablet 10 mg PO DAILY methadone [Methadone Intensol] 10 mg/mL Concentrate 100 mg PO DAILY Discontinued hydroxyzine HCl 25 mg tablet 25 mg PO BID PRN (Reason: Restlessness) Discharge Orders: Discharge Order (Routine); Ordered 07/14/25 Ordered By: Sejal Oliveira Diet: Advance to usual diet Activity on Discharge: As tolerated Stand Alone Forms: Patient Portal Discharge page Print Language: Citizen Of [place] Care Plan Goals: Improvement Health Concerns: Covid infection Plan of Treatment: Continue home medications Drink plenty of fluids Increase physical activity as tolerated Assessment: as above
== END 2025-07-14 14:00 | disposition home or self-care (01) | DRG 812 ==
LOC: HO.ED 22:56 → HO.EDOVER 23:13 → HO.IMC 07-13 23:24
PROVIDERS: Physician Assistant; Admitting Provider Physician Assistant; Emergency Provider Emergency Medicine; Visit Provider Student in an Organized Health Care Education/Training Program
DX: T40.3X1A Poisoning by methadone, accidental (unintentional), initial encounter (principal); J96.01 Acute respiratory failure with hypoxia; J69.0 Pneumonitis due to inhalation of food and vomit; U07.1 COVID-19; D69.6 Thrombocytopenia, unspecified; F17.210 Nicotine dependence, cigarettes, uncomplicated; F11.20 Opioid dependence, uncomplicated; F19.10 Other psychoactive substance abuse, uncomplicated; J45.40 Moderate persistent asthma, uncomplicated; F39 Unspecified mood [affective] disorder; E66.01 Morbid (severe) obesity due to excess calories; Z68.41 Body mass index [BMI] 40.0-44.9, adult; Z71.3 Dietary counseling and surveillance; Z71.6 Tobacco abuse counseling; Z79.899 Other long term (current) drug therapy
CPT/HCPCS: 36415; 71046; 80048; 80053; 80307; 81001; 83605; 83690; 83735; 84145; 84702; 85025; 87040; 87637; 93005; 99285; J0696; J1200; J1650; J1836; J1885; J2312; J7120

== ENCOUNTER → 2025-07-12 18:50 | Outpatient (BNV) | payer MEDICAID, SELFPAY | PROVIDERS: Admitting Provider Physician Assistant; Emergency Provider Emergency Medicine; Visit Provider Internal Medicine | DX: T50.901A Poisoning by unspecified drugs, medicaments and biological substances, accidental (unintentional), initial encounter (principal) | CPT/HCPCS: 93010 ==

== ENCOUNTER → 2025-07-13 10:28 | Outpatient (BNV) | payer MEDICAID, SELFPAY | PROVIDERS: Admitting Provider Physician Assistant; Emergency Provider Emergency Medicine; Visit Provider Physician Assistant | DX: U07.1 COVID-19 (principal); J96.01 Acute respiratory failure with hypoxia; T40.3X1A Poisoning by methadone, accidental (unintentional), initial encounter; R41.82 Altered mental status, unspecified | CPT/HCPCS: 99222; 99239 ==